=== PATIENT | female | born 1960 | race American Indian/Alaskan Native ===

== ENCOUNTER 2021-09-12 11:25 | Outpatient (CLI) | payer OTHER | END 2021-09-12 11:26 | disposition home or self-care (01) | LOC: PF 11:25 | PROVIDERS: ATTEND Internal Medicine | DX: J44.9 Chronic obstructive pulmonary disease, unspecified (principal); I50.9 Heart failure, unspecified; F32.A Depression, unspecified | CPT/HCPCS: 94010; 94729 ==